=== PATIENT | male | born 1955 | race Two or more races ===

== ENCOUNTER 2023-09-05 06:09 | Day surgery (SDC) | payer OTHER ==
[2023-08-31 15:57] VITALS: BMI 22.8
[2023-09-05] MEDS ORDERED: ERYTHROMYCIN 0.5% OPHTHALMIC OINTMENT 3.5 GM TUBE ONE (07:12)
[2023-09-05] MEDS ORDERED: TETRACAINE 0.5% OPHTH SOLN 2 ML BOTTLE ONE (07:12)
[2023-09-05] MEDS ORDERED: THROMBIN (BOVINE) 5,000 UNIT VIAL TP ONE (07:12)
[2023-09-05] MEDS ORDERED: POVIDONE-IODINE 5% OPHTHALMIC PREP 30 ML SOLUTION ONE (07:12)
[2023-09-05] MEDS ORDERED: BUPIVACAINE HCL/PF 0.5% (5MG/ML) 10 ML VIAL ONE (07:12)
[2023-09-05] MEDS ORDERED: LIDOCAINE 1%/EPI 1:100000 (50 ML MULTI DOSE VIAL) ONE (07:12)
[2023-09-05] MEDS ORDERED: ceFAZolin SODIUM 1 GM VIAL ONE ×2 (07:12→07:53)
[2023-09-05] MEDS ORDERED: PROPOFOL 20 ML ONE ×2 (07:22→08:49)
[2023-09-05] MEDS ORDERED: MIDAZOLAM HCL 2 MG/2 ML SINGLE DOSE VIAL ONE (07:22)
[2023-09-05] MEDS ORDERED: DEXAMETHASONE SOD PHOSPHATE 4 MG/1 ML VIAL ONE (07:56)
[2023-09-05] MEDS ORDERED: ONDANSETRON 4 MG/2 ML VIAL ONE (07:56)
[2023-09-05] MEDS ORDERED: GLYCOPYRROLATE 0.2 MG/1 ML VIAL ONE (08:01)
[2023-09-05] MEDS ORDERED: ONDANSETRON 4 MG/2 ML VIAL IVPUSH PRN (09:04)
[2023-09-05] MEDS ORDERED: ACETAMINOPHEN 1000 MG/100 ML BAG IVPB ONE (09:06)
[2023-09-05] MEDS ORDERED: LACTATED RINGERS SOLUTION 1,000 ML IV SCH (09:15)
[2023-09-05 10:06] VITALS: RESP 19; TEMP 97.9
[2023-09-05 10:24] VITALS: BP 128/76; PULSE 68
== END 2023-09-05 10:15 | disposition home or self-care (01) ==
LOC: FASU 06:09
PROVIDERS: ATTEND Ophthalmology
PROC: 08BQ0ZZ Excision of Right Lower Eyelid, Open Approach (ICD-10-PCS; 2023-09-05)
PROC: 08BTXZZ Excision of Left Conjunctiva, External Approach (ICD-10-PCS; 2023-09-05)
PROC: 08BSXZZ Excision of Right Conjunctiva, External Approach (ICD-10-PCS; 2023-09-05)
PROC: 08BR0ZZ Excision of Left Lower Eyelid, Open Approach (ICD-10-PCS; principal; 2023-09-05 08:00)
DX: H04.203 Unspecified epiphora, bilateral (principal); H02.532 Eyelid retraction right lower eyelid; H02.535 Eyelid retraction left lower eyelid; H04.563 Stenosis of bilateral lacrimal punctum; H04.523 Eversion of bilateral lacrimal punctum; H11.823 Conjunctivochalasis, bilateral
CPT/HCPCS: 88304-TC; 94760